=== PATIENT | female | born 1985 | race Hispanic/Latino ===

== ENCOUNTER 2018-03-06 21:55 | Inpatient (IN) | payer SELFPAY ==
[2018-03-06] MEDS ORDERED: Ondansetron HCl/PF 4 MG/2 ML Vial IVP PRN (22:37)
[2018-03-06] MEDS ORDERED: HYDROcodone/Acetaminophen 5/325 mg Tablet PO PRN (22:37)
[2018-03-06] MEDS ORDERED: NS / Oxytocin 40 units/1000ml 1,000 ML IV PRN (22:37)
[2018-03-06] MEDS ORDERED: Lidocaine 1% (PF) 30 ML VIAL SC PRN (22:37)
[2018-03-06] MEDS ORDERED: NS w/ Oxytocin 10 units 500 ML IV SCH ×2 (22:37→23:00)
[2018-03-06] MEDS ORDERED: Butorphanol Tartrate 1 MG/ML VIAL SLOW IVP PRN (22:37)
[2018-03-06] MEDS ORDERED: Misoprostol 200 MCG TAB PR PRN (22:37)
[2018-03-06] MEDS ORDERED: Diphenoxylate HCl/Atropine Tablet PO PRN (22:37)
[2018-03-06] MEDS ORDERED: Methylergonovine 0.2 MG/ML VIAL IM PRN (22:37)
[2018-03-06 22:47] VITALS: BMI 29.3
[2018-03-06] MEDS: Lactated Ringer's 1,000 ML IV SCH (23:15)
[2018-03-06 23:25] LABS: Hemoglobin 11.1 g/dL (12.0-16.0); Mean Corpuscular HGB CONC 34.8 g/dL (32.0-36.0); Mean Corpuscular Hemoglobin 28.5 pg (27.0-31.0); Mean Corpuscular Volume 81.8 fL (78.0-98.0); Mean Platelet Volume 8.6 fL (7.4-10.4); Platelet Count 158 thou/uL (130-400); RBC Distribution Width 15.8 % (11.5-14.5); Red Blood Cell (RBC) Count 3.88 mill/uL (4.20-5.40); White Blood Cell (WBC) Count 6.5 thou/uL (4.8-10.8)
[2018-03-06] MEDS: Misoprostol 100 MCG TAB VAG SCH (23:26)
[2018-03-07 00:05] LABS: Syphilis Antibody Nonreactive (Nonreactive); Syphilis Antibody Index 0.05 S/CO (<1.00 Non-Reactive)
[2018-03-07 00:40] LABS: HBSAg Index 0.23 S/CO (0-0.99); Hep B Surf Ag Non-Reactive S/CO (NonReactive)
[2018-03-07] MEDS: Lactated Ringer's 1,000 ML IV SCH (06:03)
[2018-03-07] MEDS ORDERED: Bupivacaine 0.5% 20 ML, fentaNYL Citrate/PF 400 MCG in Sodium Chloride 0.9% 72 ML EPIDURAL SCH (06:15)
[2018-03-07] MEDS: Misoprostol 100 MCG TAB VAG SCH ×4 (06:32→13:59)
[2018-03-07] MEDS ORDERED: Milk Of Magnesia 30 ML UDCUP PO PRN (14:47)
[2018-03-07] MEDS ORDERED: Bisacodyl 10 MG SUPP PR PRN (14:47)
[2018-03-07] MEDS ORDERED: NS / Oxytocin 40 units/1000ml 1,000 ML IV SCH (14:47)
[2018-03-07] MEDS ORDERED: Zolpidem Tartrate 5 MG TAB PO PRN (14:47)
[2018-03-07] MEDS ORDERED: Lanolin Ointment 7 GM TUBE TOP PRN (14:47)
[2018-03-07] MEDS ORDERED: Benzocaine/Menthol 20-0.5% 60 ML CAN TOP PRN (14:47)
[2018-03-07] MEDS: Ibuprofen 800 MG TAB PO SCH ×2 (15:54→23:57)
[2018-03-07] MEDS: Ferrous Sulfate 325 MG TAB PO SCH (16:21)
--- NOTE | 2018-03-07 21:17 | DN ---
DATE OF SERVICE: 03/07/2018 The patient is a 32-year-old female who delivered a female on 03/07/2018 at 9:[address] m spontaneous vaginal delivery. There was a tight nuchal cord x1. Estimated Apgars were 9 and 9 and weight was 3453 grams. Placenta delivered spontaneously followed by Pitocin infusion. Estima jeremiah blood loss was about 200 mL with a quantitative blood loss 153 mL. There was a small second-degr ee laceration repaired in the usual fashion. Dr. Gregory is the delivering physician. Mother and ba by are stable in the immediate .
[2018-03-07] MEDS: Docusate Calcium (SURFAK) 240 MG CAP PO SCH (21:30)
[2018-03-08 05:52] LABS: Hemoglobin 10.4 g/dL (12.0-16.0); Mean Corpuscular HGB CONC 32.3 g/dL (32.0-36.0); Mean Corpuscular Volume 83.5 fL (78.0-98.0); Mean Platelet Volume 9.1 fL (7.4-10.4); Platelet Count 128 thou/uL (130-400); RBC Distribution Width 15.8 % (11.5-14.5); Red Blood Cell (RBC) Count 3.87 mill/uL (4.20-5.40); White Blood Cell (WBC) Count 8.3 thou/uL (4.8-10.8)
[2018-03-08] MEDS: Ibuprofen 800 MG TAB PO SCH (08:32)
[2018-03-08] MEDS: Docusate Calcium (SURFAK) 240 MG CAP PO SCH (08:33)
[2018-03-08] MEDS: Ferrous Sulfate 325 MG TAB PO SCH (08:34)
[2018-03-08 08:51] VITALS: BP 147/80; TEMP 97.7
[2018-03-08] MEDS ORDERED: Adacel (T-DAP) 0.5 ML VIAL IM ONE (09:00)
[2018-03-08] MEDS ORDERED: Prenatal Vitamin 1 TAB PO SCH (09:00)
== END 2018-03-08 13:05 | disposition home or self-care (01) | DRG 775 ==
LOC: L&D 21:55 → 3SW 03-07 11:58
PROVIDERS: ADMIT Family Medicine; ATTEND Family Medicine
PROC: 10E0XZZ Delivery of Products of Conception, External Approach (ICD-10-PCS; principal; 2018-03-07)
PROC: 0KQM0ZZ Repair Perineum Muscle, Open Approach (ICD-10-PCS; 2018-03-07)
PROC: 3E033VJ Introduction of Other Hormone into Peripheral Vein, Percutaneous Approach (ICD-10-PCS; 2018-03-07)
DX: O48.0 Post-term pregnancy (principal); Z3A.40 40 weeks gestation of pregnancy; O76 Abnormality in fetal heart rate and rhythm complicating labor and delivery; O69.1XX0 Labor and delivery complicated by cord around neck, with compression, not applicable or unspecified; O70.1 Second degree perineal laceration during delivery; Z37.0 Single live birth
CPT/HCPCS: 36415; 51702; 85027; 86780; 86850; 86900; 86901; 87340; J3010; J3490; J7050